=== PATIENT | female | born 1950 | race Two or more races ===

== ENCOUNTER 2018-06-02 11:24 | Inpatient (IN) | payer MEDICARE, BC ==
[~2018-06-02] VITALS: Ht 157.5 cm; Wt 49.9 kg
[2018-06-02] MEDS ORDERED: KETOROLAC TROMETHAMINE INJ 30 MG/ML VIAL IV ONE (12:00)
[2018-06-02] MEDS ORDERED: METOCLOPRAMIDE HCL 10 MG/2 ML VIAL IV ONE (12:00)
[2018-06-02] MEDS ORDERED: IV NS 0.9% 1,000 ML BAG IV ONE ×2 (12:00→15:00)
--- NOTE | 2018-06-02 12:00 | NUR ---
PT BIB RA. COMPLAINTS OF "FEELING LETHERGIC, HEADACHE". FAMILY AT BEDSIDE. PT ALERT/ORIENTED TO TIME AND DATE. NO SOB NOTED. NO ACUTE DISTRESS NOTED. AWAITING MD COOK.
[2018-06-02 12:18] LABS: BASOPHILS % (AUTO) 0.1 % (0.0-2.0); HEMATOCRIT 40 % (33-45); HEMOGLOBIN 13.6 g/dL (11.5-14.8); LYMPHOCYTES # (AUTO) 0.4 /CMM (0.8-4.8); LYMPHOCYTES % (AUTO) 3.1 % (20.0-44.0); MEAN CORPUSCULAR HGB CONC 34 g/dl (31.0-36.0); MEAN CORPUSCULAR VOLUME 95 fL (82-100); MONOCYTES # (AUTO) 0.4 /CMM (0.1-1.30); MONOCYTES % (AUTO) 2.9 % (2.0-12.0); NEUTROPHILS # (AUTO) 12.6 /CMM (1.8-8.9); NEUTROPHILS % (AUTO) 93.9 % (43.0-81.0); PLATELET COUNT (AUTO) 292 /CMM (150-450); RED BLOOD CELL COUNT(AUTO) 4.21 MIL/uL (4.0-5.2); WHITE BLOOD COUNT (AUTO) 13.5 K/uL (4.3-11.0)
[2018-06-02] MEDS ORDERED: METOCLOPRAMIDE HCL 10 MG/2 ML VIAL ONE (12:20)
[2018-06-02] MEDS ORDERED: KETOROLAC TROMETHAMINE 15 MG/ML VIAL ONE (12:20)
--- NOTE | 2018-06-02 12:25 | NUR ---
RADIO AT BEDSIDE.
[2018-06-02 12:30] LABS: CALCIUM, SERUM 9.5 mg/dL (8.5-10.1); CARBON DIOXIDE 24 mmol/L (21-32); CHLORIDE 97 mmol/L (98-107); CREATININE 1.1 mg/dL (0.6-1.3); GLUCOSE 158 mg/dL (74-106); POTASSIUM 3.8 mmol/L (3.5-5.1); SODIUM SERUM 135 mmol/L (136-145); UREA NITROGEN, BLOOD 18 mg/dL (7-18)
[2018-06-02 12:36] LABS: ALANINE AMINOTRANSFERASE 22 U/L (12-78); ALBUMIN 3.1 g/dL (3.4-5.0); ALKALINE PHOSPHATASE 82 U/L (46-116); ASPARTATE AMINOTRANSFERASE 24 U/L (15-37); BILIRUBIN,DIRECT 0.2 mg/dL (0.0-0.2); BILIRUBIN,TOTAL 0.6 mg/dL (0.2-1.0); TOTAL PROTEIN, SERUM 8.4 g/dL (6.4-8.2)
[2018-06-02] MEDS ORDERED: CEFTRIAXONE 1GM BAG (ER ONLY) 50 ML IV ONE ×2 (13:12→13:30)
[2018-06-02] MEDS ORDERED: ACETAMINOPHEN ES 500 MG TABLET ONE (13:12)
[2018-06-02] MEDS ORDERED: AZITHROMYCIN 500 MG in IV D5W 250 ML IV ONE (13:30)
[2018-06-02] MEDS ORDERED: ACETAMINOPHEN ES 500 MG TABLET PO ONE (13:30)
--- NOTE | 2018-06-02 14:28 | NUR ---
CALLED TO GIVE REPORT. WAS TOLD TO CALL BACK IN 30 MINS.
[2018-06-02] MEDS ORDERED: ONDANSETRON HCL/PF 4 MG/2 ML VIAL IVP PRN (15:00)
[2018-06-02] MEDS ORDERED: DEXTROSE 50%-WATER 50 ML DISP.SYRIN IV PRN (15:00)
--- NOTE | 2018-06-02 15:17 | NUR ---
REPORT GIVEN TO DEBRA SWEENEY.
[2018-06-02 16:00] VITALS: BP_SYST 103; BP_SYST 163; BP_DIAS 52
--- NOTE | 2018-06-02 16:00 | NUR ---
RN NOTES RECEIVED PT IN ROOM 120-2 FROM ER , PT IS A/Ox3, ON RA NO SOB NOTED, SUPPORTIVE FAMILY AT THE BEDSIDE, R AC IV SITE G 20 CLEAN , DRY AND INTACT , SR UP x3, CALL LIGHT WITHIN EASY REACH, BED LOCKED AND IN LOWEST POSITION , CONTINUE TO MONITOR .
[2018-06-02] MEDS: BLOOD SUGAR DIAGNOSTIC 1 EACH STRIP IN SCH ×2 (17:20→21:53)
[2018-06-02] MEDS: INSULIN REGULAR, HUMAN 100 UNIT/ML 3 ML VIAL SQ PRN ×2 (17:20→21:55)
[2018-06-02] MEDS ORDERED: FLUCONAZOLE (100 MG) 100 MG TABLET PO SCH (18:30)
[2018-06-02 20:00] VITALS: BP 92/52
--- NOTE | 2018-06-02 20:25 | NUR ---
RN OPENING NOTES RECEIVED REPORT FROM MIKE SWEENEY. PATIENT A/A/O X3, ABLE TO MAKE NEEDS KNOWN & STATE PAIN. BREATHING EVEN & UNLABORED, TOLERATING ROOM AIR. DENIES ANY SOB OR DIFFICULTY BREATHING. RADIAL PULSES PRESENT. RIGHT AC IV #20 INTACT & PATENT W/ DRESSING CDI, SALINE LOCKED. DENIES ANY PAIN OR DISCOMFORT @ THIS TIME. SAFETY MEASURES IN PLACE W/ SIDE RAILS UP & CALL LIGHT WITHIN REACH. ABLE TO AMBULATE INDEPENDENTLY BUT INSTRUCTED TO CALL FOR ANY OTHER ASSISTANCE. WILL CONTINUE TO MONITOR.
[2018-06-02] MEDS: NYSTATIN (PYXIS) 500,000 UNIT/5 ML ORAL.SUSP PO SCH (20:41)
[2018-06-02] MEDS: IV NS 0.9% 1,000 ML IV SCH (21:53)
[2018-06-03 02:19] LABS: APPEARANCE,URINE CLEAR (CLEAR); BILIRUBIN,URINE NEGATIVE (NEGATIVE); BLOOD, URINE TRACE-INTA Ery/uL (NEGATIVE); KETONES,URINE NEGATIVE (NEGATIVE); LEUKOCYTE ESTERASE ,URINE NEGATIVE (NEGATIVE); NITRITE, URINE NEGATIVE (NEGATIVE); PROTEIN,URINE 30 mg/dl (NEGATIVE); UGLUCOSE NEGATIVE (NEGATIVE); UROBILINOGEN,URINE 0.2 EU/dL (0.2)
[2018-06-03 02:58] LABS: BACTERIA,URINE Few /HPF (None Seen); COLOR,URINE AMBER (YELLOW); SQUAMOUS EPITHELIAL CELL,UR Few /HPF (None Seen); WBC,URINE 0-2 /HPF (0-3)
[2018-06-03 04:00] VITALS: BP 121/62
[2018-06-03 06:50] LABS: CALCIUM, SERUM 8.3 mg/dL (8.5-10.1); CREATININE 0.7 mg/dL (0.6-1.3); POTASSIUM 3.4 mmol/L (3.5-5.1)
[2018-06-03 06:54] LABS: MAGNESIUM 2.2 mg/dL (1.8-2.4); PHOSPHORUS 1.7 mg/dL (2.5-4.9)
[2018-06-03 07:01] LABS: THYROID STIMULATING HORMONE 1.573 uIU/mL (0.358-3.74)
--- NOTE | 2018-06-03 07:10 | NUR ---
MS/RN INITIAL NOTES RECEIVED PT IN BED, A/OX4. C/O HEADACHE WITH PAIN SCALE OF 7/10. WITH ONGOING IVF NS AT 50ML/HR INFUSING WELL ON RAC G20 IV LINE. HOB ELEVATED. SAFETY MEASURES IN PLACED. CALL LIGHT WITHIN REACH. WILL CONT TO MONITOR
[2018-06-03] MEDS: BLOOD SUGAR DIAGNOSTIC 1 EACH STRIP IN SCH ×4 (07:58→21:44)
[2018-06-03 08:00] VITALS: BP 127/70
[2018-06-03] MEDS: NYSTATIN (PYXIS) 500,000 UNIT/5 ML ORAL.SUSP PO SCH ×3 (08:06→16:16)
[2018-06-03] MEDS: PANTOPRAZOLE 40 MG VIAL IV SCH (08:06)
[2018-06-03] MEDS: ACETAMINOPHEN 325 MG TABLET PO PRN ×2 (08:10→21:55)
[2018-06-03] MEDS ORDERED: POTASSIUM CHLORIDE 20 MEQ TAB.PRT.SR PO SCH (10:30)
--- NOTE | 2018-06-03 11:29 | NUR ---
RN NOTES SEEN AND EXAMINED BY DR FERREIRA, ALL QUESTIONS AND CONCERNS WERE ANSWERED BY MD. MD ORDERED: XANAX 0.5 MG PO Q HS AND TRAMADOL 25MG PO Q6HR PRN PAIN. ORDERS NOTED AND CARRIED OUT
[2018-06-03] MEDS ORDERED: K PHOS NEUTRAL 250 MG TABLET PO ONE (11:30)
[2018-06-03] MEDS: AZITHROMYCIN 500 MG in IV D5W 250 ML IV SCH (11:38)
[2018-06-03] MEDS ORDERED: TRAMADOL HCL 50 MG TABLET PO PRN (12:00)
[2018-06-03] MEDS: CEFTRIAXONE 1 G in IV D5W 50 ML IV SCH (12:45)
[2018-06-03 13:31] LABS: BASOPHILS % (AUTO) 0.1 % (0.0-2.0); EOSINOPHILS % (AUTO) 0.2 % (0.0-6.0); HEMATOCRIT 33 % (33-45); HEMOGLOBIN 11.7 g/dL (11.5-14.8); LYMPHOCYTES # (AUTO) 0.6 /CMM (0.8-4.8); LYMPHOCYTES % (AUTO) 6.2 % (20.0-44.0); MEAN CORPUSCULAR HGB CONC 35 g/dl (31.0-36.0); MEAN CORPUSCULAR VOLUME 95 fL (82-100); MONOCYTES # (AUTO) 0.3 /CMM (0.1-1.30); MONOCYTES % (AUTO) 2.8 % (2.0-12.0); NEUTROPHILS # (AUTO) 8.3 /CMM (1.8-8.9); NEUTROPHILS % (AUTO) 90.7 % (43.0-81.0); PLATELET COUNT (AUTO) 258 /CMM (150-450); RED BLOOD CELL COUNT(AUTO) 3.52 MIL/uL (4.0-5.2); WHITE BLOOD COUNT (AUTO) 9.1 K/uL (4.3-11.0)
[2018-06-03 16:00] VITALS: BP 111/56
[2018-06-03] MEDS: LACTOBACILLUS RHAMNOSUS GG 1 EACH CAP.SPRINK PO SCH (16:16)
[2018-06-03] MEDS: IV NS 0.9% 1,000 ML IV SCH (17:29)
--- NOTE | 2018-06-03 18:57 | NUR ---
RN NOTES PT IN STABLE CONDITION. NO ACUTE CHANGES NOTED THROUGHOUT SHIFT. SAFETY MEASURES OBSERVED AT ALL TIMES. WILL ENDORSED TO PM SHIFT RN FOR MAYA
[2018-06-03 20:00] VITALS: BP 110/73
--- NOTE | 2018-06-03 20:30 | NUR ---
RN OPENING NOTES RECEIVED REPORT FROM CLEMENT SWEENEY. PATIENT A/A/O X3, ABLE TO MAKE NEEDS KNOWN & STATE PAIN. BREATHING EVEN & UNLABORED, TOLERATING ROOM AIR. DENIES ANY SOB OR DIFFICULTY BREATHING. RADIAL PULSES PRESENT. RIGHT WRIST IV #22 INTACT & PATENT W/ DRESSING CDI & IVF NS INFUSING WELL @ 75 ML/HR. DENIES ANY PAIN OR DISCOMFORT @ THIS TIME. SAFETY MEASURES IN PLACE W/ SIDE RAILS UP & CALL LIGHT WITHIN REACH. ABLE TO AMBULATE INDEPENDENTLY BUT INSTRUCTED TO CALL FOR ANY OTHER ASSISTANCE. WILL CONTINUE TO MONITOR.
[2018-06-03] MEDS: ALPRAZOLAM 0.25 MG TABLET PO SCH (21:44)
[2018-06-03] MEDS: INSULIN REGULAR, HUMAN 100 UNIT/ML 3 ML VIAL SQ PRN (21:44)
[2018-06-04 04:00] VITALS: BP 121/62
--- NOTE | 2018-06-04 07:10 | NUR ---
MS/RN INITIAL NOTES RECEIVED PT IN BED, A/OX4. NO C/O PAIN AT THIS TIME. WITH ONGOING IVF NS AT 50ML/HR INFUSING WELL ON RHAND G22 IV LINE. HOB ELEVATED. SAFETY MEASURES IN PLACED. CALL LIGHT WITHIN REACH. WILL CONT TO MONITOR
[2018-06-04 07:54] LABS: CALCIUM, SERUM 6.5 mg/dL (8.5-10.1); CREATININE 0.8 mg/dL (0.6-1.3); PHOSPHORUS 2.9 mg/dL (2.5-4.9); POTASSIUM 3.6 mmol/L (3.5-5.1)
[2018-06-04 08:00] VITALS: BP 131/62
[2018-06-04] MEDS: BLOOD SUGAR DIAGNOSTIC 1 EACH STRIP IN SCH ×4 (08:13→22:10)
[2018-06-04] MEDS: LACTOBACILLUS RHAMNOSUS GG 1 EACH CAP.SPRINK PO SCH ×2 (08:18→17:13)
[2018-06-04] MEDS: PANTOPRAZOLE 40 MG VIAL IV SCH (08:18)
[2018-06-04] MEDS: NYSTATIN (PYXIS) 500,000 UNIT/5 ML ORAL.SUSP PO SCH ×3 (08:18→17:14)
[2018-06-04] MEDS: ACETAMINOPHEN 325 MG TABLET PO PRN (08:22)
[2018-06-04] MEDS: AZITHROMYCIN 500 MG in IV D5W 250 ML IV SCH (13:01)
[2018-06-04] MEDS: CEFTRIAXONE 1 G in IV D5W 50 ML IV SCH (14:07)
[2018-06-04] MEDS: IV NS 0.9% 1,000 ML IV SCH (14:08)
[2018-06-04 16:00] VITALS: BP 118/63
[2018-06-04] MEDS ORDERED: AZITHROMYCIN 250 MG TABLET PO SCH (19:00)
[2018-06-04 20:00] VITALS: BP 130/63
[2018-06-04] MEDS: ALPRAZOLAM 0.25 MG TABLET PO SCH (22:00)
[2018-06-05 04:00] VITALS: BP 121/68
[2018-06-05 08:00] VITALS: BP 123/69
[2018-06-05] MEDS: BLOOD SUGAR DIAGNOSTIC 1 EACH STRIP IN SCH ×2 (08:10→12:25)
[2018-06-05] MEDS: LACTOBACILLUS RHAMNOSUS GG 1 EACH CAP.SPRINK PO SCH (08:11)
[2018-06-05] MEDS: NYSTATIN (PYXIS) 500,000 UNIT/5 ML ORAL.SUSP PO SCH ×2 (08:15→12:25)
[2018-06-05] MEDS: PANTOPRAZOLE 40 MG VIAL IV SCH (08:15)
[2018-06-05] MEDS ORDERED: TRAMADOL HCL 50 MG TABLET PO SCH (09:00)
--- NOTE | 2018-06-05 10:00 | NUR ---
rn note morning tramadol dose was not given because pt stated i took tramadol at 0500 am today, no pain at this time. Addendum: 06/05/18 at 1441 by MARTY ROMAN RN pt reminded not to take any more home medications while in the hospital. pt verbalized understanding.
[2018-06-05 10:07] LABS: BASOPHILS % (AUTO) 0.2 % (0.0-2.0); EOSINOPHILS % (AUTO) 2.8 % (0.0-6.0); HEMATOCRIT 35 % (33-45); HEMOGLOBIN 11.8 g/dL (11.5-14.8); LYMPHOCYTES # (AUTO) 0.7 /CMM (0.8-4.8); LYMPHOCYTES % (AUTO) 12.7 % (20.0-44.0); MEAN CORPUSCULAR HGB CONC 34 g/dl (31.0-36.0); MEAN CORPUSCULAR VOLUME 96 fL (82-100); MONOCYTES # (AUTO) 0.3 /CMM (0.1-1.30); MONOCYTES % (AUTO) 5.6 % (2.0-12.0); NEUTROPHILS # (AUTO) 4.4 /CMM (1.8-8.9); NEUTROPHILS % (AUTO) 78.7 % (43.0-81.0); PLATELET COUNT (AUTO) 303 /CMM (150-450); RED BLOOD CELL COUNT(AUTO) 3.63 MIL/uL (4.0-5.2); WHITE BLOOD COUNT (AUTO) 5.6 K/uL (4.3-11.0)
[2018-06-05 10:23] LABS: CALCIUM, SERUM 8.3 mg/dL (8.5-10.1); CREATININE 0.9 mg/dL (0.6-1.3); POTASSIUM 3.1 mmol/L (3.5-5.1)
[2018-06-05] MEDS: CEFTRIAXONE 1 G in IV D5W 50 ML IV SCH (12:25)
[2018-06-05] MEDS ORDERED: AZIT250T PO (14:37)
[2018-06-05] MEDS ORDERED: LACTOBACILLUS RHAMNOSUS GG 1 EACH CAP.SPRINK PO SCH (17:00)
== END 2018-06-05 15:20 | disposition home or self-care (01) | DRG 871 ==
LOC: ER 11:33 → MEDSG1 14:28
PROVIDERS: ADMIT Registered Nurse; ATTEND Registered Nurse
DX: A41.9 Sepsis, unspecified organism (principal); G92 Toxic encephalopathy; J18.9 Pneumonia, unspecified organism; E44.1 Mild protein-calorie malnutrition; E87.2 Acidosis; B37.0 Candidal stomatitis; E87.1 Hypo-osmolality and hyponatremia; D72.829 Elevated white blood cell count, unspecified; Z68.20 Body mass index [BMI] 20.0-20.9, adult; E87.6 Hypokalemia; E88.09 Other disorders of plasma-protein metabolism, not elsewhere classified; G43.909 Migraine, unspecified, not intractable, without status migrainosus; E86.0 Dehydration; R73.9 Hyperglycemia, unspecified
CPT/HCPCS: 36415; 70450-TC; 71045-TC; 80048-TC; 80061-TC; 80076-TC; 81000-TC; 82962-TC; 83605-TC; 83735-TC; 84100-TC; 84443-TC; 85025-TC; 87040-TC; 87081-TC; 87086-TC; 87400; C9113; G0378; J0456; J0696; J1815; J1885; J2405; J2765; J7030; J7050; J7060; Z7610